=== PATIENT | female | born 1980 | race Caucasian/White ===

== ENCOUNTER 2022-02-16 08:43 | Emergency (ER) | payer OTHER ==
[~2022-02-16] VITALS: Ht 170.2 cm; Wt 54.4 kg
--- NOTE | 2022-02-16 08:59 | NUR ---
TRIAGED PT AND PT PLACED IN WAITING ROOM UNTIL BED BECOMES AVAILABLE. PT IS A&OX4. NO S/S OF DISTRESS. DR. LAWSON MADE AWARE. VSS.
[2022-02-16 09:00] VITALS: BP_SYST 119
--- NOTE | 2022-02-16 09:26 | NUR ---
Patient to ER bed 5 to gown for evaluation. Side rails up. Report given to Eric MURPHY.
--- NOTE | 2022-02-16 10:00 | NUR ---
ER at bedside examining patient.
--- NOTE | 2022-02-16 10:29 | NUR ---
A/OX4, VSS , VERBALIZED UNDERSTANDING OF DC INSTRUCTIONS, ALL QUESTIONS ANSWERED, AMBULATED WITH STEADY GAIT.
--- NOTE | 2022-02-16 10:30 | NUR ---
Patient given written and verbal discharge instructions and verbalizes understanding. ER MD discussed with patient the results and treatment provided. Patient in stable condition. Opportunity for questions provided and answered. Medication side effect fact sheet provided.
== END 2022-02-16 10:30 | disposition home or self-care (01) ==
LOC: SED 08:43
DX: M79.662 Pain in left lower leg (principal); Z79.899 Other long term (current) drug therapy
CPT/HCPCS: 93971; 99284